=== PATIENT | female | born 1985 | race Caucasian/White ===

== ENCOUNTER 2017-03-11 15:56 | Observation (INO) ==
--- NOTE | 2017-03-11 16:05 | Emergency Department Note ---
Disposition Condition: Good Forms: Work/School Release, ED Satisfaction Letter Abdominal Pain HPI - General Chief Complaint: ED Abdominal Pain Stated Complaint: Abd Pressure / Weakness Time Seen by Provider: 03/11/17 16:01 Source: patient Mode of arrival: other (in custody) Limitations: no limitations Nursing Notes Reviewed: Yes Vital Signs Reviewed: Yes - History of Present Illness Pain Scale: 5 - Related Data Allergies Allergy/AdvReac Type Severity Reaction Status Date / Time No Known Allergies Allergy Verified 03/11/17 15:59 Abdominal Pain PMH - Past Medical History Medical history: Reports: no medical history Female Surgical History: Reports: appendectomy, cholecystectomy 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: endometriosis Psychiatric history: Reports: no psych history - Social History Smoking status: Current every day smoker Alcohol use: Reports: none Drug use: Reports: opiates, other Physical Exam - General Limitations: no limitations General appearance: alert Course Vital Signs Temperature 99.1 F 03/11/17 16:00 Pulse Rate 64 03/11/17 16:00 Respiratory Rate 14 03/11/17 16:00 Blood Pressure 139/101 03/11/17 16:00 O2 Sat by Pulse Oximetry 99 03/11/17 16:00 Temperature 99.1 F 03/11/17 16:00 Pulse Rate 64 03/11/17 16:00 Respiratory Rate 14 03/11/17 16:00 Blood Pressure 139/101 03/11/17 16:00 O2 Sat by Pulse Oximetry 99 03/11/17 16:03 Oxygen Delivery Oxygen Delivery Room Air
[2017-03-11 16:35] LABS: Bilirubin,Urine Negative (Negative); Blood,Urine Large (Negative); Clarity,Urine Cloudy (Clear); Color,Urine Yellow (Yellow); Glucose,Urine (UA) Normal (Normal); Ketones,Urine Negative (Negative); Leukocyte Esterase,Urine Moderate (Negative); Nitrite,Urine Negative (Negative); Protein,Urine 100 mg/dL (Neg-Trace); Specific Gravity,Urine 1.015 (1.010-1.025); Urobilinogen,Urine Normal (Normal)
[2017-03-11 16:36] LABS: Bacteria,Urine None Seen per hpf (None-Few); Hyaline Casts,Urine Few per lpf (None-Few); RBC,Urine TNTC per hpf (0-3); Squamous Epithelial Cell,Urine Many per lpf (None-Few); WBC,Urine TNTC per hpf (0-3)
[2017-03-11 17:40] LABS: Basophils % 0.1 %; Eosinophils # 0.2 K/mcL (0.0-0.6); Eosinophils % 1.4 %; Hematocrit 24.6 % (35.3-44.9); Immature Granulocytes % 0.9 % (0-4); Mean Corpuscular HGB Conc 30.5 g/dL (31.6-35.5); Mean Corpuscular Volume 91.8 fL (83.0-100.0); Monocytes # 0.4 K/mcL (0.0-1.3); Monocytes % 4.2 %; Neutrophils # 6.9 K/mcL (1.6-8.9); Platelet Count 551 K/mcL (140-400); Red Blood Count 2.68 M/mcL (3.82-4.97); Red Cell Distribution Width 14.8 % (11.5-14.5); Segmented Neutrophils % 65.4 %
[2017-03-11 17:52] LABS: % Iron Saturation 4 % (15-50); Iron 22 mcg/dL (50-170); Transferrin 380 mg/dL (180-382)
[2017-03-11 17:56] LABS: Alanine Aminotransferase 10 Units/L (0-55); Albumin 2.8 g/dL (3.5-5.0); Albumin/Globulin Ratio 0.6 (1.1-2.2); Alkaline Phosphatase 142 Units/L (38-126); Amylase 45 Units/L (25-125); Aspartate Amino Transferase 13 Units/L (5-34); BUN/Creatinine Ratio 13 (6-26); Bilirubin,Direct 0.1 mg/dL (0.0-0.5); Bilirubin,Indirect 0.1 mg/dL (0.0-1.2); Bilirubin,Total 0.2 mg/dL (0.2-1.2); Blood Urea Nitrogen 9 mg/dL (7-20); Calcium 9.1 mg/dL (8.6-10.8); Carbon Dioxide 26 mEq/L (19-29); Chloride 109 mEq/L (98-109); Globulin 4.6 g/dL (2.4-3.5); Glucose 87 mg/dL (70-99); Lipase 21 Units/L (8-78); Osmolality,Calculated 290 (280-300); Potassium 3.8 mEq/L (3.5-4.5); Sodium 141 mEq/L (136-145); Total Protein 7.4 g/dL (6.0-8.3); eGFR For African Americans > 60 (> 60); eGFR For Non-African Americans > 60 (> 60)
[2017-03-11 17:57] LABS: Hemoglobin 7.5 g/dL (11.5-15.4)
--- NOTE | 2017-03-11 18:22 | Emergency Department Note ---
Disposition Clinical Impression: Symptomatic anemia bleeding Qualifiers: hemorrhage type: unspecified Qualified Code(s): O72.1 - Other immediate hemorrhage Disposition: Admitted As Inpatient Condition: Good Referrals: NO,PCP [Primary Care Provider] - Forms: ED Satisfaction Letter, Work/School Release Female Urogenital HPI - General Chief complaint: ED Abdominal Pain Stated complaint: Abd Pressure / Weakness Time Seen by Provider: 03/11/17 16:01 Source: patient Limitations: no limitations Nursing Notes Reviewed: Yes Vital Signs Reviewed: Yes - History of Present Illness HPI Narrative: Patient is a 32-year-old female who is 10 days vaginal delivery at home is here for weakness and vaginal bleeding. She states she has been bleeding every day since her delivery she cannot give a good history but states she was not seen or evaluated after her vaginal delivery home. She has been incarcerated since then for prior warrant today she was seen in Court is extremely weak and requested evaluation in the emergency department. She states she has been using several tampons or pads a day since the delivery spell like a heavy period. Pt Subjective Complaint: vaginal bleeding Onset (ago): day(s) (10) Severity: none Improves with: none Worsens with: none Vaginal discharge: blood, blood clots Sexual activity: no : no - Related Data Home Medications Medication Instructions Recorded Confirmed No Known Home Drugs 03/11/17 03/11/17 Allergies Allergy/AdvReac Type Severity Reaction Status Date / Time No Known Allergies Allergy Verified 03/11/17 15:59 All systems ED: reviewed and negative except as stated. Constitutional: Reports: weakness. 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 - Social History Smoking Status: Current every day smoker Smokeless Tobacco Status: No Alcohol use: Reports: none Drug use: Reports: opiates, other Physical Exam - General Limitations: no limitations General appearance: alert - Head Head exam: atraumatic, normocephalic, normal inspection - Eye Eye exam: Present: other (Pale conjunctiva) - Expanded Eye Exam Pupils: Left: reactive - ENT ENT exam: normal exam, normal oropharynx, mucous membranes moist - Expanded ENT Exam External ear exam: Present: normal external inspection Mouth exam: Present: normal external inspection Teeth exam: Present: normal inspection Throat exam: Present: normal inspection - Neck Neck exam: Present: normal inspection, full ROM, trachea midline - Chest Chest inspection: Present: normal inspection, symmetric chest wall rise - Respiratory Respiratory exam: Present: normal lung sounds bilaterally - Cardiovascular Cardiovascular exam: Present: regular rate, normal rhythm, normal heart sounds - Abdominal Exam Abdominal exam: Present: soft, Non-Tender. 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 Absent: tenderness, pedal edema - Expanded Upper Extremity Exam Shoulder exam: Present: normal inspection, full ROM Arm exam: Present: normal inspection, full ROM Elbow exam: Present: normal inspection, full ROM Forearm/Wrist exam: Present: normal inspection, full ROM Hand exam: Present: normal inspection, full ROM Vascular exam: Normal: capillary refill, radial pulse - Expanded Lower Extremity Exam Hip/Pelvis exam: Present: normal inspection, full ROM Upper leg exam: Present: normal inspection, full ROM Knee exam: Present: normal inspection, full ROM Lower leg exam: Present: normal inspection, full ROM Ankle exam: Present: normal inspection, full ROM Foot/toe exam: Present: normal inspection, full ROM Neurovascular/Tendon exam: Absent: motor deficit, sensory deficit, tendon deficit - Back Exam Back exam: Present: normal inspection, full ROM. Absent: tenderness - Neurological Exam Neurological exam: Present: alert, oriented X3 - Expanded Neurological Exam Patient oriented to: Present: person, place, time Coma Scale Eye Opening: Spontaneous Coma Scale Motor Response: Obeys Commands Coma Scale Verbal Response: Oriented Coma Scale Total: 15 - Psychiatric Psychiatric exam: Present: normal affect, normal mood - Skin Skin exam: Present: warm, dry, intact, normal color Course Vital Signs Temperature 99.1 F 03/11/17 16:00 Pulse Rate 64 03/11/17 16:00 Respiratory Rate 14 03/11/17 16:00 Blood Pressure 139/101 03/11/17 16:00 O2 Sat by Pulse Oximetry 99 03/11/17 16:00 Temperature 99.1 F 03/11/17 16:00 Pulse Rate 57 03/11/17 19:40 Respiratory Rate 14 03/11/17 19:40 Blood Pressure 128/76 03/11/17 19:40 O2 Sat by Pulse Oximetry 100 03/11/17 19:40 Oxygen Delivery Oxygen Delivery Room Air Urogenital-Female - Differential Diagnosis Likely: sexually transmitted disease - Medical Records Medical records reviewed: Yes I reviewed the patient's medical records. - Lab Data Lab results reviewed: Yes I reviewed the patient's lab results. Result diagrams: 03/11/17 17:26 03/11/17 17:26 Lab Results 03/11/17 03/11/17 03/11/17 Range/Units 16:22 17:26 17:26 WBC 10.6 (4.3-11.1) K/mcL RBC 2.68 L (3.82-4.97) M/mcL Hgb 7.5 L (11.5-15.4) g/dL Hct 24.6 L (35.3-44.9) % MCV 91.8 (83.0-100.0) fL MCH 28.0 (28.0-33.3) pg MCHC 30.5 L (31.6-35.5) g/dL RDW 14.8 H (11.5-14.5) % Plt Count 551 H (140-400) K/mcL MPV 10.0 (9.4-12.4) fL Immature Gran % 0.9 (0-4) % Seg Neutrophils % 65.4 % Lymphocytes % 28.0 % Monocytes % 4.2 % Eosinophils % 1.4 % Basophils % 0.1 % Neutrophils # 6.9 (1.6-8.9) K/mcL Lymphocytes # 3.0 (0.6-4.6) K/mcL Monocytes # 0.4 (0.0-1.3) K/mcL Eosinophils # 0.2 (0.0-0.6) K/mcL Basophils # 0.0 (0.0-0.2) K/mcL Sodium 141 (136-145) mEq/L Potassium 3.8 (3.5-4.5) mEq/L Chloride 109 (98-109) mEq/L Carbon Dioxide 26 (19-29) mEq/L BUN 9 (7-20) mg/dL Creatinine 0.67 (0.57-1.11) mg/dL Est GFR ( Amer) > 60 (> 60) Est GFR (Non-Af Amer) > 60 (> 60) BUN/Creatinine Ratio 13 (6-26) Glucose 87 (70-99) mg/dL Calculated Osmolality 290 (280-300) Calcium 9.1 (8.6-10.8) mg/dL Iron (50-170) mcg/dL % Saturation (15-50) % Transferrin (180-382) mg/dL Total Bilirubin 0.2 (0.2-1.2) mg/dL Direct Bilirubin 0.1 (0.0-0.5) mg/dL Indirect Bilirubin 0.1 (0.0-1.2) mg/dL AST 13 (5-34) Units/L ALT 10 (0-55) Units/L Alkaline Phosphatase 142 H (38-126) Units/L Serum Total Protein 7.4 (6.0-8.3) g/dL Albumin 2.8 L (3.5-5.0) g/dL Globulin 4.6 H (2.4-3.5) g/dL Albumin/Globulin Ratio 0.6 L (1.1-2.2) Amylase 45 (25-125) Units/L Lipase 21 (8-78) Units/L Beta HCG, Quant 66 H (0-4) mIU/ml Urine Color Yellow (Yellow) Urine Clarity Cloudy A (Clear) Urine pH 7.0 (5.0-8.0) pH Units Ur Specific [place] 1.015 (1.010-1.025) Urine Protein 100 H (Neg-Trace) mg/dL Urine Glucose (UA) Normal (Normal) mg/dL Urine Ketones Negative (Negative) mg/dL Urine Blood Large H (Negative) Urine Nitrite Negative (Negative) Urine Bilirubin Negative (Negative) Urine Urobilinogen Normal (Normal) mg/dL Ur Leukocyte Esterase Moderate H (Negative) Urine Microscopic RBC TNTC H (0-3) per hpf Urine Microscopic WBC TNTC H (0-3) per hpf Ur Squamous Epith Cells Many H (None-Few) per lpf Urine Bacteria None Seen (None-Few) per hpf Hyaline Casts Few (None-Few) per lpf Ur Culture Indicated? YES A (NO) Hepatitis A IgM Ab (Nonreactive) Hep Bs Antigen (Nonreactive) Hep B Core IgM Ab (Nonreactive) Hepatitis C Ab Screen (Nonreactive) Blood Type Antibody Screen 03/11/17 03/11/17 03/11/17 Range/Units 17:26 17:26 19:11 WBC (4.3-11.1) K/mcL RBC (3.82-4.97) M/mcL Hgb (11.5-15.4) g/dL Hct (35.3-44.9) % MCV (83.0-100.0) fL MCH (28.0-33.3) pg MCHC (31.6-35.5) g/dL RDW (11.5-14.5) % Plt Count (140-400) K/mcL MPV (9.4-12.4) fL Immature Gran % (0-4) % Seg Neutrophils % % Lymphocytes % % Monocytes % % Eosinophils % % Basophils % % Neutrophils # (1.6-8.9) K/mcL Lymphocytes # (0.6-4.6) K/mcL Monocytes # (0.0-1.3) K/mcL Eosinophils # (0.0-0.6) K/mcL Basophils # (0.0-0.2) K/mcL Sodium (136-145) mEq/L Potassium (3.5-4.5) mEq/L Chloride (98-109) mEq/L Carbon Dioxide (19-29) mEq/L BUN (7-20) mg/dL Creatinine (0.57-1.11) mg/dL Est GFR ( Amer) (> 60) Est GFR (Non-Af Amer) (> 60) BUN/Creatinine Ratio (6-26) Glucose (70-99) mg/dL Calculated Osmolality (280-300) Calcium (8.6-10.8) mg/dL Iron 22 L (50-170) mcg/dL % Saturation 4 L (15-50) % Transferrin 380 (180-382) mg/dL Total Bilirubin (0.2-1.2) mg/dL Direct Bilirubin (0.0-0.5) mg/dL Indirect Bilirubin (0.0-1.2) mg/dL AST (5-34) Units/L ALT (0-55) Units/L Alkaline Phosphatase (38-126) Units/L Serum Total Protein (6.0-8.3) g/dL Albumin (3.5-5.0) g/dL Globulin (2.4-3.5) g/dL Albumin/Globulin Ratio (1.1-2.2) Amylase (25-125) Units/L Lipase (8-78) Units/L Beta HCG, Quant (0-4) mIU/ml Urine Color (Yellow) Urine Clarity (Clear) Urine pH (5.0-8.0) pH Units Ur Specific [place] (1.010-1.025) Urine Protein (Neg-Trace) mg/dL Urine Glucose (UA) (Normal) mg/dL Urine Ketones (Negative) mg/dL Urine Blood (Negative) Urine Nitrite (Negative) Urine Bilirubin (Negative) Urine Urobilinogen (Normal) mg/dL Ur Leukocyte Esterase (Negative) Urine Microscopic RBC (0-3) per hpf Urine Microscopic WBC (0-3) per hpf Ur Squamous Epith Cells (None-Few) per lpf Urine Bacteria (None-Few) per hpf Hyaline Casts (None-Few) per lpf Ur Culture Indicated? (NO) Hepatitis A IgM Ab Nonreactive (Nonreactive) Hep Bs Antigen Nonreactive (Nonreactive) Hep B Core IgM Ab Reactive H (Nonreactive) Hepatitis C Ab Screen Reactive H (Nonreactive) Blood Type O POSITIVE Antibody Screen NEGATIVE - Radiology Data Radiology results reviewed: Yes I reviewed the patient's radiology results.
[2017-03-11 18:45] LABS: Hepatitis A Antibody IgM Nonreactive (Nonreactive); Hepatitis B Surface Antigen Nonreactive (Nonreactive)
[2017-03-11 18:51] LABS: Hepatitis B Core IgM Reactive (Nonreactive)
[2017-03-11 20:16] LABS: Hepatitis C Virus Antibody Reactive (Nonreactive)
--- NOTE | 2017-03-11 20:16 | OB/GYN History & Physical ---
Date of Encounter: 03/11/17 Time of Encounter: 20:04 Assessment and Plan (1) anemia Current visit: Yes Status: Acute Pt presenting with symptomatic anemia. Hgb 7.5 which is likely actually lower in this pt that smokes 1 1/2PPD and has only had a few sips of water over the last 2 days. Will admit for IV fluids and possible blood transfusion. POC discussed with Dr. Peters History of Present Illness Chief complaint: lightheaded/dizzy HPI: Ms. Mccallum is a 32 year old female presenting 10 days s/p home with c/o dizziness, weakness, and lightheadedness. Pt reports she was seen by a customer support representative in [place] 1 or 2 times early in and she did have labs drawn here at [place]. She reports that she started leaking clear fluid 2 days before delivery and then started kandi the night before but wasn't sure she was in labor. She reports she pushed 3 times and delivered a full term baby girl. She denies calling anyone for help and states she was at a friend's house but was alone when she delivered. She does not remember if she cut the umbilical cord or not but thinks she pulled the placenta out in chunks. She does not remember much bleeding at the time of delivery but has felt weak ever since. She has not had any medical care since delivery. Yesterday she was arrested for failure to report to her PO and was taken to skilled nursing in [facility]. Her baby was taken into custody of [facility]. She states she was taken from [facility] skilled nursing to [facility] court this am. While at court her PO noticed how pale she looked and the pt states she felt like she was going to pass out so they released her to come here. She reports her bleeding is now light. No fevers, chills, odorous discharge, chest pain, SOB, headache, or vision changes. She does report occassional sharp pain in her RLQ. No urinary sx. Past Med Surg Social Fam HX - Past Medical History Medical history: no medical history Psychiatric history: no psych history - Social History Smoking Status: Current every day smoker Smokeless Tobacco Status: No Alcohol use: none Drug use: opiates, other Obstetrical History - Pregnancies : 3 Para: 3 Term: 3 : 0 Ab's: 0 Livin Medications and Allergies No Known Home Drugs 03/11/17 [History] Allergies No Known Allergies Allergy (Verified 03/11/17 15:59) Review of System OB - Constitutional Constitutional ROS IM: fatigue, weakness, no chills, no fever(s), no headache(s) - Breasts Breasts: other (engorged) - Cardiovascular Cardiovascular: edema (mild ankle edema bilaterally), lightheadedness, no chest pain, no chest pain with activity, no dyspnea, no rapid heart rate, no syncope - Genitourinary Genitourinary: no dysuria, no flank pain, no genital lesions, no vaginal odor, no vaginal pruritis Exam - Vital Signs Vital signs: Initial Vital Signs Temp Pulse Resp BP Pulse Ox 99.1 F 64 14 139/101 99 03/11/17 16:00 03/11/17 16:00 03/11/17 16:00 03/11/17 16:00 03/11/17 16:00 - Constitutional Constitutional: mild distress, other (pale) - HEENT HEENT: Pallor, Mucus Membranes Moist - Neck Neck exam: normal inspection - Lungs Respiratory exam: CTAB - Cardiovascular Cardiovascular exam: RRR, +S1, +S2 - Abdomen Abdomen: Present: bowel sounds normal (mildly TTP RLQ, fundus low, lochia light) Abdomen detail: right lower quadrant: tenderness - Extremities Extremities exam: normal inspection - Vulva Vulva: bilateral: normal - Anus/Rectum Anus/Rectum: Present: normal perianal skin Results Result Diagrams: 03/11/17 17:26 03/11/17 17:26 Abnormal lab results RBC 2.68 M/mcL (3.82-4.97) L 03/11/17 17:26 Hgb 7.5 g/dL (11.5-15.4) L 03/11/17 17:26 Hct 24.6 % (35.3-44.9) L 03/11/17 17:26 MCHC 30.5 g/dL (31.6-35.5) L 03/11/17 17:26 RDW 14.8 % (11.5-14.5) H 03/11/17 17:26 Plt Count 551 K/mcL (140-400) H 03/11/17 17:26 Iron 22 mcg/dL (50-170) L 03/11/17 17:26 % Saturation 4 % (15-50) L 03/11/17 17:26 Alkaline Phosphatase 142 Units/L (38-126) H 03/11/17 17:26 Albumin 2.8 g/dL (3.5-5.0) L 03/11/17 17:26 Globulin 4.6 g/dL (2.4-3.5) H 03/11/17 17:26 Albumin/Globulin Ratio 0.6 (1.1-2.2) L 03/11/17 17:26 Urine Clarity Cloudy (Clear) A 03/11/17 16:22 Urine Protein 100 mg/dL (Neg-Trace) H 03/11/17 16:22 Urine Blood Large (Negative) H 03/11/17 16:22 Ur Leukocyte Esterase Moderate (Negative) H 03/11/17 16:22 Urine Microscopic RBC TNTC per hpf (0-3) H 03/11/17 16:22 Urine Microscopic WBC TNTC per hpf (0-3) H 03/11/17 16:22 Ur Squamous Epith Cells Many per lpf (None-Few) H 03/11/17 16:22 Ur Culture Indicated? YES (NO) A 03/11/17 16:22 Hep B Core IgM Ab Reactive (Nonreactive) H 03/11/17 17:26 All other labs normal.
[2017-03-11] MEDS ORDERED: Ringers Solution, Lactated 1,000 ML IVC ONE (20:54)
[2017-03-11] MEDS: Ibuprofen 600 MG TABLET PO PRN (21:42)
[2017-03-12] MEDS: Acetaminophen 325 MG TABLET PO PRN ×2 (01:23→10:42)
[2017-03-12] MEDS: Nicotine 21 MG PATCH.TD24 TD SCH ×2 (01:25→08:24)
[2017-03-12] MEDS ORDERED: Ondansetron 4 MG/2 ML VIAL ONE (04:37)
[2017-03-12] MEDS: Ibuprofen 600 MG TABLET PO PRN ×2 (04:40→13:12)
[2017-03-12] MEDS: Ondansetron 4 MG/2 ML VIAL IVP PRN ×2 (04:40→10:42)
[2017-03-12] MEDS: Ringers Solution, Lactated 1,000 ML IVC SCH ×2 (05:53→05:54)
[2017-03-12 06:40] LABS: Basophils % 0.1 %
[2017-03-12 06:47] LABS: Eosinophils # 0.1 K/mcL (0.0-0.6); Eosinophils % 1.3 %; Hematocrit 19.8 % (35.3-44.9); Hemoglobin 6.2 g/dL (11.5-15.4); Immature Granulocytes % 0.6 % (0-4); Immature Platelets 2.3 % (1.1-6.1); Lymphocytes # 2.9 K/mcL (0.6-4.6); Lymphocytes % 28.8 %; Mean Corpuscular HGB Conc 31.3 g/dL (31.6-35.5); Mean Corpuscular Hemoglobin 28.4 pg (28.0-33.3); Mean Corpuscular Volume 90.8 fL (83.0-100.0); Monocytes # 0.5 K/mcL (0.0-1.3); Monocytes % 4.6 %; Neutrophils # 6.6 K/mcL (1.6-8.9); Platelet Count 678 K/mcL (140-400); Red Blood Count 2.18 M/mcL (3.82-4.97); Red Cell Distribution Width 14.7 % (11.5-14.5); Segmented Neutrophils % 64.6 %
[2017-03-12] MEDS ORDERED: Prenatal Vit/FA 1 EACH TABLET PO SCH (09:00)
[2017-03-12] MEDS ORDERED: Nicotine 21 MG PATCH.TD24 TD SCH (09:00)
[2017-03-12] MEDS ORDERED: 0.9 % Sodium Chloride 250 ML IVC SCH (09:45)
--- NOTE | 2017-03-12 09:51 | OB/GYN Progress Note ---
Date of Encounter: 03/12/17 Time of Encounter: 09:49 - Assessment and Plan (1) bleeding Current Visit: Yes Status: Acute Pt stable. Vaginal bleeding minimal used 1 pad overnight. Discussed patient with Dr. Shields. Transfuse 2 units PRBC and then will discharge to home. Qualifiers: hemorrhage type: unspecified Qualified Code(s): O72.1 - Other immediate hemorrhage Subjective - Subjective Patient reports: appetite normal, voiding normally, pain well controlled Objective - Vital Signs Latest vital signs: Vital Signs Temp Pulse Resp BP Pulse Ox 03/12/17 07:33 99 F 66 16 112/68 98 03/12/17 00:05 97.6 F 86 15 132/71 92 03/11/17 21:27 98.8 F 55 15 133/81 99 03/11/17 21:18 99 03/11/17 21:02 14 122/77 Intake and Output 03/11/17 03/12/17 03/12/17 23:59 07:59 15:59 Intake Total 1237 / 1237 Output Total 450 / 450 0 / 0 Balance -450 / -450 1237 / 1237 Intake: IV Fluids 1000 / 1000 Lactated Ringers 1,000 ML 1000 / 1000 @ 3750 mls/hr IVC .Q16M ONE Rx#:[id number] Oral 237 / 237 Output: Urine 450 / 450 0 / 0 Other: Weight 63.503 kg - I&O's I&O's: Intake & Output 03/09/17 03/10/17 03/11/17 03/12/17 23:59 23:59 23:59 23:59 Intake Total 1237 / 1237 Output Total 450 / 450 0 / 0 Balance -450 / -450 1237 / 1237 Weight 63.503 kg - Exam Lungs: bilateral: normal Chest: Normal S1, Normal S2 Extremities: Present: normal Abdomen: Present: normal appearance, soft Comments: Fundus u-4 - Labs Labs: Abnormal lab results RBC 2.18 M/mcL (3.82-4.97) L 03/12/17 06:16 Hgb 6.2 g/dL (11.5-15.4) L 03/12/17 06:16 Hct 19.8 % (35.3-44.9) L 03/12/17 06:16 MCHC 31.3 g/dL (31.6-35.5) L 03/12/17 06:16 RDW 14.7 % (11.5-14.5) H 03/12/17 06:16 Plt Count 678 K/mcL (140-400) H 03/12/17 06:16 Iron 22 mcg/dL (50-170) L 03/11/17 17:26 % Saturation 4 % (15-50) L 03/11/17 17:26 Alkaline Phosphatase 142 Units/L (38-126) H 03/11/17 17:26 Albumin 2.8 g/dL (3.5-5.0) L 03/11/17 17:26 Globulin 4.6 g/dL (2.4-3.5) H 03/11/17 17:26 Albumin/Globulin Ratio 0.6 (1.1-2.2) L 03/11/17 17:26 Beta HCG, Quant 66 mIU/ml (0-4) H 03/11/17 17:26 Urine Clarity Cloudy (Clear) A 03/11/17 16:22 Urine Protein 100 mg/dL (Neg-Trace) H 03/11/17 16:22 Urine Blood Large (Negative) H 03/11/17 16:22 Ur Leukocyte Esterase Moderate (Negative) H 03/11/17 16:22 Urine Microscopic RBC TNTC per hpf (0-3) H 03/11/17 16:22 Urine Microscopic WBC TNTC per hpf (0-3) H 03/11/17 16:22 Ur Squamous Epith Cells Many per lpf (None-Few) H 03/11/17 16:22 Ur Culture Indicated? YES (NO) A 03/11/17 16:22 Hep B Core IgM Ab Reactive (Nonreactive) H 03/11/17 17:26 Hepatitis C Ab Screen Reactive (Nonreactive) H 03/11/17 17:26 Consult Discharge Plan - Plan Referrals: NO,PCP [Primary Care Provider] -
[2017-03-12 15:07] VITALS: BP 156/91
--- NOTE | 2017-03-12 15:36 | Event Note ---
Date of Encounter: 03/12/17 Time of Encounter: 15:33 RN called and stated patient requested stopping of second unit of blood due to feeling an increased level of anxiety. Went to see patient, patient states she felt anxious and felt like her feet were going numb and tingly during transfusion. Patient states she no longer wants second blood transfusion, she feels much better after the first unit was transfused.Discussed with Dr. Shields. okay to stop transfusion. Since there were no change in vital signs, no need to draw transfusion reaction lab work
--- NOTE | 2017-03-12 15:39 | Discharge Summary ---
Date of Encounter: 03/12/17 Time of Encounter: 15:39 - Discharge Diagnosis (1) bleeding Priority: Primary Status: Acute Comments: She with stable vital signs, states only used 1 pad last night and one pad during the day today for vaginal bleeding, and those pads were not saturated when change. Patient received 1 unit of PRBCs today declining transfusion of second unit after feeling anxious after start of transfusion. Patient stable and appropriate for discharge at this time. Instructed patient to follow-up with previous OB care provider, and when to return for emergency treatment. Pt and family verbalizes understanding Qualifiers: hemorrhage type: unspecified Qualified Code(s): O72.1 - Other immediate hemorrhage - Discharge Medications Home Medications: Acetaminophen [Tylenol] 650 mg PO Q6HR PRN tab 03/12/17 [Rx] Ibuprofen [Motrin] 600 mg PO TID PRN tab 03/12/17 [Rx] Nicotine Patch [Nicoderm] 21 mg TD DAILY 03/12/17 [Rx] Vit/FA 1 each PO DAILY tab 03/12/17 [Rx] Allergies/Adverse Reactions: Allergies No Known Allergies Allergy (Verified 03/11/17 15:59) Data Procedures and tests throughout hospitalization: Laboratory Tests 03/12/17 06:16 WBC 10.2 RBC 2.18 L Hgb 6.2 L Hct 19.8 L MCV 90.8 MCH 28.4 MCHC 31.3 L RDW 14.7 H Plt Count 678 H MPV 10.0 Immature Gran % 0.6 Seg Neutrophils % 64.6 Lymphocytes % 28.8 Monocytes % 4.6 Eosinophils % 1.3 Basophils % 0.1 Neutrophils # 6.6 Lymphocytes # 2.9 Monocytes # 0.5 Eosinophils # 0.1 Basophils # 0.0 Immature Plt Fraction 2.3 Labs on day of discharge: Labs from last 24 hours 03/12/17 06:16 WBC 10.2 RBC 2.18 L Hgb 6.2 L Hct 19.8 L MCV 90.8 MCH 28.4 MCHC 31.3 L RDW 14.7 H Plt Count 678 H MPV 10.0 Immature Gran % 0.6 Seg Neutrophils % 64.6 Lymphocytes % 28.8 Monocytes % 4.6 Eosinophils % 1.3 Basophils % 0.1 Neutrophils # 6.6 Lymphocytes # 2.9 Monocytes # 0.5 Eosinophils # 0.1 Basophils # 0.0 Immature Plt Fraction 2.3 Date of admission: 03/11/17 20:55 Primary care physician: PCP NO Discharging clinician: Marcela Pennington Anticipated date of discharge: 03/12/17 - Patient Status Disposition: Home, Self-Care Condition: Good Functional capacity at discharge: independent ambulation Overall status at discharge: patient is back to baseline - Discharge Instructions Instructions: Anemia (GEN) Follow Up With: NO,PCP [Primary Care Provider] - - Diet and Activity Activity: resume usual activities as tolerated Diet: regular diet 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 Tranfusion of 1 unit PRBC, started second unit, but patient refused. Time spent discussing smoking cessation with patient: 3 to 10 minutes Time Attestation: Total time spent providing and/or coordinating discharge services: Time Spent: Less than 30 minutes Exam - Constitutional Vitals: Temp Pulse Resp BP Pulse Ox 99.9 F H 56 16 156/91 98 03/12/17 15:05 03/12/17 15:05 03/12/17 15:05 03/12/17 15:05 03/12/17 15:05 General appearance IM: A&O X 3 - Respiratory Respiratory exam: Present: CTAB - Cardiovascular Cardiovascular exam IM: Present: RRR - Uterus Position: 4 Fingers Below Umbilicus - Neurological Exam Neurological exam: normal gait, oriented X3 - Psychiatric Additional comments: Pt states anxious and wants to be discharged
== END 2017-03-12 15:59 | disposition home or self-care (01) ==
LOC: 3BNU 15:56 → EMEROO 15:56 → 3BNU 21:13
PROVIDERS: ADMIT Obstetrics & Gynecology; ATTEND Registered Nurse

== ENCOUNTER 2017-10-21 20:11 | Observation (INO) ==
[2017-10-21 22:14] LABS: Prothrombin Time 10.7 Seconds (9.4-12.1)
[2017-10-21 22:17] LABS: Activated Partial Thrombo Time 26.8 Seconds (26.0-36.0)
[2017-10-21 22:21] LABS: Basophils % 0.3 %; Eosinophils # 0.4 K/mcL (0.0-0.6); Eosinophils % 3.7 %; Hematocrit 36.7 % (35.3-44.9); Hemoglobin 12.1 g/dL (11.5-15.4); Immature Granulocytes % 0.1 % (0-4); Lymphocytes # 3.2 K/mcL (0.6-4.6); Lymphocytes % 31.3 %; Mean Corpuscular Hemoglobin 29.2 pg (28.0-33.3); Mean Corpuscular Volume 88.6 fL (83.0-100.0); Mean Platelet Volume 9.9 fL (9.4-12.4); Monocytes # 0.6 K/mcL (0.0-1.3); Monocytes % 5.8 %; Platelet Count 336 K/mcL (140-400); Red Blood Count 4.14 M/mcL (3.82-4.97); Red Cell Distribution Width 13.1 % (11.5-14.5); Segmented Neutrophils % 58.8 %
[2017-10-21 22:28] LABS: BUN/Creatinine Ratio 7 (6-26); Blood Urea Nitrogen 6 mg/dL (6-20); Calcium 9.3 mg/dL (8.6-10.3); Carbon Dioxide 20 mEq/L (23-29); Chloride 111 mEq/L (98-107); Glucose 89 mg/dL (70-105); Osmolality,Calculated 287 (280-300); Potassium 3.3 mEq/L (3.5-5.1); Sodium 140 mEq/L (136-145); eGFR For African Americans > 60 (> 60); eGFR For Non-African Americans > 60 (> 60)
--- NOTE | 2017-10-21 22:31 | Emergency Department Note ---
Disposition Clinical Impression: Chest pain Qualifiers: Chest pain type: precordial pain Qualified Code(s): R07.2 - Precordial pain Disposition: Admitted As Inpatient Condition: Fair Reasons to Return/Additional Instructions: Patient to be admitted to hospital. Referrals: NONE,PCP [Non-Partnered Physician] - Forms: ED Satisfaction Letter Time of Disposition: 00:10 Chest Pain HPI - General Chief Complaint: ED Chest Pain Stated Complaint: chest pain, charisma hx of strokes Source: patient Limitations: no limitations Vital Signs Reviewed: Yes Nursing Notes Reviewed: Yes - History of Present Illness HPI Narrative: 32-year-old female presents to emergency with a chief complaint of shortness of breath and chest pain. She states the chest pain has been present since this morning and the shortness of breath for about a month now. Shortness of breath is present with exertion and at rest intermittently. She states she is unable to walk approximately 10 feet without becoming short of breath. She does have a history of asthma for which she has tried her albuterol inhaler with minimal relief. Chest pain has been present since this morning she describes it as a substernal twinge almost like a muscle spasm. She states that there is no preceding trigger and she has no associations with exertion. She did present to the [facility] emergency room this morning and had a workup for a pulmonary embolism including elevated d-dimer, CTA of the chest which was suboptimal. He was discharged on hydroxyzine for suspected anxiety for which she does have a history of, which she states did help some. She also has a significant history of uncontrolled hypertension and stroke resulting from hypertension which she has no residual deficits from. Denies any symptoms of recent illness, fevers, chills or she does state she becomes diaphoretic and feels hot whenever these episodes come on. Pt complaint: chest pain Onset (ago): hour(s) Duration: intermittent Onset: during rest Pain Location: substernal Severity scale (1-10): 2 Quality: other (twinging) Pain Radiation: none Improves with: medication-other (Hydroxyzine) Worsens with: inspiration Associated symptoms: Reports: diaphoresis, dyspnea Treatments prior to arrival chest pain: none - Related Data Home Medications Medication Instructions Recorded Confirmed Benztropine [Cogentin] 5 mg PO HS 10/21/17 10/21/17 BuPROPion [Wellbutrin] 150 mg PO 10/21/17 Lisinopril [Zestril] 20 mg PO DAILY 10/21/17 10/21/17 Mirtazapine [Remeron] 15 mg PO HS 10/21/17 10/21/17 risperiDONE [Risperidone] 1 mg PO HS 10/21/17 10/21/17 Allergies Allergy/AdvReac Type Severity Reaction Status Date / Time No Known Allergies Allergy Verified 03/13/17 13:09 All systems ED: reviewed and negative except as stated. Review of Systems: As Per HPI Chest Pain PMH - Past Medical History Medical history: Reports: CVA, hypertension Surgical history: Reports: appendectomy, cholecystectomy, other (Laparoscopy and ablation for endometriosis.) Psychiatric history: Reports: no psych history [employer] history: Reports: endometriosis - Social History Smoking Status: Current every day smoker Alcohol use: Reports: none Drug use: Reports: opiates Physical Exam - General Limitations: no limitations General appearance: alert, in no apparent distress - Chest Chest inspection: Present: normal inspection, symmetric chest wall rise - Respiratory Respiratory exam: Present: normal lung sounds bilaterally - Cardiovascular Cardiovascular exam: Present: regular rate, normal rhythm, normal heart sounds, other (No reproducible chest pain) - Extremities Exam Extremities exam: Present: normal inspection, full ROM. Absent: tenderness, pedal edema - Neurological Exam Neurological exam: Present: alert, oriented X3 - Psychiatric Psychiatric exam: Present: normal affect, normal mood, anxious - Skin Skin exam: Present: warm, dry, intact, normal color Course Course Narrative: 32-year-old female presents with a chief complaint of chest pain, shortness of breath. She did recently resent to [facility] emergency room and was worked up for a possible pulmonary embolism and diagnosed with hydroxyzine for suspect anxiety. We will obtain her labs, chest x-ray, EKG Vital Signs Temperature 98.8 F 10/21/17 20:22 Pulse Rate 99 10/21/17 20:22 Respiratory Rate 20 10/21/17 20:22 Blood Pressure 155/88 10/21/17 20:22 O2 Sat by Pulse Oximetry 97 10/21/17 20:22 Temperature 98.8 F 10/21/17 20:22 Pulse Rate 81 10/21/17 22:03 Respiratory Rate 18 10/21/17 22:03 Blood Pressure 109/76 10/21/17 22:03 O2 Sat by Pulse Oximetry 97 10/21/17 22:03 Oxygen Delivery Oxygen Delivery Room Air Chest Pain - MDM Narrative Medical decision making narrative: 32-year-old female presents emergency room with chest pain, shortness of breath. Vital signs have been unremarkable. Labs unremarkable. EKG did show ST depressions in the anterior leads. EKG was repeated and continues to show ST depression. Heart score 5: slightly suspicious, smoking hx, htn, previous cva. Combined with history of uncontrolled hypertension, stroke, dyspnea, chest pain, diaphoresis, we feel that she would benefit from an admission. This was discussed with the hospitalist, who accepts for admission. - Lab Data Result diagrams: 10/21/17 22:00 10/21/17 22:00 Lab Results 10/21/17 10/21/17 10/21/17 Range/Units 22:00 22:00 22:00 WBC 10.2 (4.3-11.1) K/mcL RBC 4.14 (3.82-4.97) M/mcL Hgb 12.1 (11.5-15.4) g/dL Hct 36.7 (35.3-44.9) % MCV 88.6 (83.0-100.0) fL MCH 29.2 (28.0-33.3) pg MCHC 33.0 (31.6-35.5) g/dL RDW 13.1 (11.5-14.5) % Plt Count 336 (140-400) K/mcL MPV 9.9 (9.4-12.4) fL Immature Gran % 0.1 (0-4) % Seg Neutrophils % 58.8 % Lymphocytes % 31.3 % Monocytes % 5.8 % Eosinophils % 3.7 % Basophils % 0.3 % Neutrophils # 6.0 (1.6-8.9) K/mcL Lymphocytes # 3.2 (0.6-4.6) K/mcL Monocytes # 0.6 (0.0-1.3) K/mcL Eosinophils # 0.4 (0.0-0.6) K/mcL Basophils # 0.0 (0.0-0.2) K/mcL PT 10.7 (9.4-12.1) Seconds INR 1.0 APTT 26.8 (26.0-36.0) Seconds Sodium (136-145) mEq/L Potassium (3.5-5.1) mEq/L Chloride (98-107) mEq/L Carbon Dioxide (23-29) mEq/L BUN (6-20) mg/dL Creatinine (0.60-1.20) mg/dL Est GFR ( Amer) (> 60) Est GFR (Non-Af Amer) (> 60) BUN/Creatinine Ratio (6-26) Glucose (70-105) mg/dL Calculated Osmolality (280-300) Calcium (8.6-10.3) mg/dL Troponin I (< 0.04) ng/mL B-Natriuretic Peptide 18 (Less than 100) pg/mL 10/21/17 10/21/17 Range/Units 22:00 22:00 WBC (4.3-11.1) K/mcL RBC (3.82-4.97) M/mcL Hgb (11.5-15.4) g/dL Hct (35.3-44.9) % MCV (83.0-100.0) fL MCH (28.0-33.3) pg MCHC (31.6-35.5) g/dL RDW (11.5-14.5) % Plt Count (140-400) K/mcL MPV (9.4-12.4) fL Immature Gran % (0-4) % Seg Neutrophils % % Lymphocytes % % Monocytes % % Eosinophils % % Basophils % % Neutrophils # (1.6-8.9) K/mcL Lymphocytes # (0.6-4.6) K/mcL Monocytes # (0.0-1.3) K/mcL Eosinophils # (0.0-0.6) K/mcL Basophils # (0.0-0.2) K/mcL PT (9.4-12.1) Seconds INR APTT (26.0-36.0) Seconds Sodium 140 (136-145) mEq/L Potassium 3.3 L (3.5-5.1) mEq/L Chloride 111 H (98-107) mEq/L Carbon Dioxide 20 L (23-29) mEq/L BUN 6 (6-20) mg/dL Creatinine 0.86 (0.60-1.20) mg/dL Est GFR ( Amer) > 60 (> 60) Est GFR (Non-Af Amer) > 60 (> 60) BUN/Creatinine Ratio 7 (6-26) Glucose 89 (70-105) mg/dL Calculated Osmolality 287 (280-300) Calcium 9.3 (8.6-10.3) mg/dL Troponin I < 0.03 (< 0.04) ng/mL B-Natriuretic Peptide (Less than 100) pg/mL - EKG Data EKG shows normal: sinus rhythm Rate: normal Rhythm: NSR Eunice/QRS: normal ST segment depression in: v1, v2 When compared to previous EKG there are: changes noted Interpretation: nonspecific ST-T wave changes Heart Score - Score History: Slightly Suspicious EKG: Significant ST-Depression Age: Less than 45 Risk Factors: Equal/Greater than 3 risk factor or history of atherosclerotic disease Troponin: Less than normal limit HEART Score Total: 4
--- NOTE | 2017-10-21 23:55 | Emergency Department Note ---
START Narrative - START START: I examined this patient and my medical decision-making was reviewed with the Resident Physician. I agree with the documented findings, disposition and treatment plan as described except to the extent set forth below. 32-year-old female presents to the ER for chest pain. Workup here is unremarkable. However, treat her EKG did show that she had some T-wave inversions in V1 through V2 these were new. Patient needs to be admitted for these EKG abnormalities in the setting of chest pain. She states she had a CTA of the chest done at [facility] today that was negative for pulmonary embolus.
--- NOTE | 2017-10-22 01:32 | Internal Med History&Physical ---
<JacquessanyaflyjanieCelso - Last Filed: 10/22/17 03:46> Date of Encounter: 10/22/17 Time of Encounter: 01:28 Assessment and Plan (1) Chest pain Current visit: Yes Status: Acute Patient reports intermittent chest twinges/tightness without radiation accompanied by SOB, warmth, and panic. Likely 2/2 panic attack. Patient has significant psych hx. Troponin's negative x 2 (ionia and here) CTA chest negative for PE VS stable ST segment depression in V1 V2 Hx of HTN, CVA, current smoker, with risk factors and EKG changes will need cardiac work up. TTE for the morning Will trend troponin. With hx of drug abuse awaiting urine drug screen to rule out cocaine induced vasospasm Once drug screen comes back will order Stress Test. Patient's CTA was negative at [facility] but because it was a suboptimal study will check Venous dopplers of legs to rule out PE. Qualifiers: Chest pain type: unspecified Qualified Code(s): R07.9 - Chest pain, unspecified (2) HTN (hypertension) Current visit: Yes Status: Acute Pt with hx of HTN on home lisinopril Plan: Restart home lisinopril Qualifiers: Hypertension type: essential hypertension Qualified Code(s): I10 - Essential (primary) hypertension (3) Psychiatric diagnosis Current visit: Yes Status: Acute Patient on home Cogentin, Wellbutrin, Remeron, and risperdal continue home psych meds. Internal Medicine - H&P: HPI Chief complaint: Chest pain, SOB Admitted From: Emergency Dept Plans for Post Hospital Care: Home History of present illness: Ms. Mccallum is a 32 year old female c PMhx of HTN, CVA s residual defecits, opioid abuse on vivitrol, and asthma, reports to the [facility] c/o intermittent chest pain and SOB x 1 day. Patient describes the pain as central and feeling like a muscle twinge, she reports accompanying SOB, warmth, and feeling of panic. She denies radiations, abd pn, N, V, D. Patient went to [facility] ED this afternoon for these same sxs. At that time there were no abnormalities in her EKG, her vitals were normal, her troponin was negative. Patient's D-Dimer was milder elevated 558 and a CTA chest was performed. It was negative for PE, but was technically substandard and only able to evaluate the main pulmonary arteries. She was given 1 time dose of hydroxyzine for anxiety which improved her symptoms. Patient was discharged home. Patient came to [facility] ED several hours later because sxs continued to occur. CXR was performed which was normal. Repeat trop still negative. Repeat EKG showed ST segment depression in V1 and V2 , not on prior EKG from February of 2017, we do not have a copy of the EKG from [facility] but their documentation from the ED suggests this depression is new since this afternoon. At thsi time patient has no chest pain or SOB. She reprots feelign fien when I just sit here and don't get worked up. Past Med Surg Social Fam HX - Past Medical History Medical history: CVA, hypertension Psychiatric history: anxiety, depression, PTSD - Past Surgical History Surgical History: appendectomy, cholecystectomy, other - Social History Smoking Status: Current every day smoker Packs per day: 0.5 Smokeless Tobacco Status: No Alcohol use: none Drug use: opiates Internal Medicine - H&P: Meds Benztropine [Cogentin] 0.5 mg PO HS 10/21/17 [History] BuPROPion [Wellbutrin] 150 mg PO 10/21/17 [History] Lisinopril [Zestril] 20 mg PO DAILY 10/21/17 [History] Mirtazapine [Remeron] 15 mg PO HS 10/21/17 [History] risperiDONE [Risperidone] 1 mg PO HS 10/21/17 [History] 3 Allergy/AdvReac Type Severity Reaction Status Date / Time No Known Allergies Allergy Verified 03/13/17 13:09 All Systems PM: A 10-system review of systems was performed and is negative for pertinent findings except as documented above in the HPI. - Constitutional Constitutional: no chills, no fever(s) - EENT Eyes: no change in vision, no pain Ears: no ear pain Nose, mouth and throat: no hoarseness, no nasal discharge - Cardiovascular Cardiovascular ROS IM: chest pain, dyspnea - Respiratory Respiratory: dyspnea on exertion, no cough - Gastrointestinal Gastrointestinal: no abdominal pain, no diarrhea, no vomiting - Musculoskeletal Musculoskeletal ROS IM: no muscle weakness, no numbness - Integumentary Integumentary IM: no rash, no jaundice - Neurological Neurological ROS: no confusion, no numbness, no tingling - Psychiatric Psychiatric: anxiety, no confusion - Constitutional Vitals: Temp Pulse Resp BP Pulse Ox 97.8 F 74 15 100/60 97 10/22/17 00:55 10/22/17 00:55 10/22/17 00:55 10/22/17 00:55 10/22/17 00:55 General appearance: Present: A&O X 3, no acute distress, answers questions appropriately - Head Head exam: Present: atraumatic, normocephalic - Eye Eye exam: Present: EOMI, PERRL, conjuntiva pink, sclera anicteric Pupils: Present: PERRL - Neck Neck exam general surgery: Present: supple, trachea midline - Respiratory Respiratory exam: Present: CTAB. Absent: accessory muscle use, rales, rhonchi, wheezes - Cardiovascular Cardiovascular exam: Present: RRR, +S1, +S2. Absent: diastolic murmur, gallop, rubs, systolic murmur Additional comments: no chest wall tenderness - GI/Abdominal GI/Abdominal exam: Present: normal bowel sounds, soft, no peritoneal signs. Absent: distended, tenderness - Extremities Exam Extremities exam: Present: warm, radial pulses palpable and symmetrical. Absent : calf tenderness, cyanotic, pedal edema - Neurological Exam Neurological exam: Present: alert, CN II-XII intact, oriented X3, no focal deficits. Absent: facial droop, speech deficit - Psychiatric Psychiatric exam: Present: anxious - Skin Skin exam: Present: dry, intact Internal Med - H&P Results - Labs CBC & Chem 7: 10/21/17 22:00 10/21/17 22:00 <Chele Lawson - Last Filed: 10/22/17 06:10> Date of Encounter: 10/22/17 Time of Encounter: 04:05 Past Med Surg Social Fam HX - Family History Mother Living Status: Still Living Hx Family Cardiac Disorders: No Father Living Status: Still Living Hx Family Cardiac Disorders: No - Constitutional Vitals: Temp Pulse Resp BP Pulse Ox 97.6 F 107 15 102/75 99 10/22/17 03:39 10/22/17 03:39 10/22/17 03:39 10/22/17 03:39 10/22/17 03:39 General appearance: Present: A&O X 3, no acute distress - Head Head exam: Present: normal inspection - Eye Eye exam: Present: PERRL. Absent: scleral icterus - ENT ENT exam: Present: mucous membranes dry, normal exam, normal oropharynx - Neck Neck exam general surgery: Present: supple - Respiratory Respiratory exam: Present: CTAB. Absent: chest wall tenderness, rales, rhonchi , wheezes - Cardiovascular Cardiovascular exam: Present: RRR, +S1, +S2. Absent: diastolic murmur, systolic murmur - GI/Abdominal GI/Abdominal exam: Present: soft. Absent: tenderness - Extremities Exam Extremities exam: Present: warm, radial pulses palpable and symmetrical. Absent : pedal edema, tenderness - Back Exam Back exam: Absent: CVA tenderness (L), CVA tenderness (R) - Neurological Exam Neurological exam: Present: alert, CN II-XII intact, oriented X3, no focal deficits - Psychiatric Psychiatric exam: Present: normal affect, normal mood Internal Med - H&P Results - Labs CBC & Chem 7: 10/21/17 22:00 10/21/17 22:00 Labs: Cardiac Enzymes 10/22/17 Range/Units 04:33 Troponin I < 0.03 (< 0.04) ng/mL - EKG Data -: EKG Interpreted by Myself - EKG Data Prior EKG available for review: yes EKG comments: 10/22/17 06:03 NSR; subtle ST-T depression anteriorly -- different from prior EKG - Diagnostic Studies Chest x-ray Status: image reviewed by me (negative) - Attending Attestation I discussed the patient ASA'CARSARMIUT, PMH, ROS, lab data, and exam findings with Dr. Walker. I then saw and examined patient independently as well. Patient presently without chest pain and has no neurologic deficits to my exam. Given her history of drug abuse in the past, I requested ER and 3B nursing staff to obtain a urine drug screen before we order any cardiac stress testing. Urine sample still yet to be collected. Although she reports sobriety and abstinence from drugs of abuse, I still would like confirmation before proceeding with cardiac work-up. She has no FH CAD, but she now presents with chest pain and has history of CVA. I suspect these are due to her history of drug use and I worry about cocaine use. We will await urine drug screen before proceeding with stress testing. We will avoid beta blockers for now as well. I agree with LE Dopplers to rule out DVT. Patient had serum test at [facility] which was negative. Other than my comments above and noted exam findings, I agree with Dr. Walker' s assessment and plan.
[2017-10-22] MEDS ORDERED: Mirtazapine 15 MG TABLET PO SCH (02:15)
[2017-10-22] MEDS ORDERED: risperiDONE 1 MG TABLET PO SCH (02:15)
[2017-10-22] MEDS ORDERED: *HR* Heparin 5,000 UNIT/ML VIAL SQ SCH (06:15)
[2017-10-22 07:02] LABS: Amphetamine Screen,Urine Negative ng/mL (Cutoff=1000); Barbiturate Screen,Urine Negative ng/mL (Cutoff=200); Benzodiazepines Screen,Urine Negative ng/mL (Cutoff=200); Cannabinoid Screen,Urine Negative ng/mL (Cutoff = 50); Cocaine Screen,Urine Negative ng/mL (Cutoff= 300); Opiate Screen,Urine Negative ng/mL (Cutoff=300); Phencyclidine Screen,Urine Negative ng/mL (Cutoff=25)
[2017-10-22] MEDS ORDERED: BuPROPion XL (24 HR) 150 MG TABLET PO SCH (09:00)
[2017-10-22] MEDS ORDERED: Aspirin 81 MG TAB.CHEW PO SCH (09:00)
[2017-10-22] MEDS ORDERED: Lisinopril 20 MG TABLET PO SCH (09:00)
--- NOTE | 2017-10-22 10:52 | Event Note ---
Date of Encounter: 10/22/17 Time of Encounter: 10:47 (1) Chest pain with intermittent chest twinges/tightness without radiation accompanied by SOB, warmth, and panic. Possibly secondary to panic attack as patient has significant psych hx. serial troponins negative.. CTA chest negative for PE. EKG with ST segment depression in V1 V2. Patient's CTA was negative at [place] but because it was a suboptimal study will check Venous dopplers of legs to rule out PE. Stress test and echo pending. (2) HTN (hypertension) hx of HTN. BP controlled. Cont home lisinopril (3) Psychiatric diagnosis cont home Cogentin, Wellbutrin, Remeron, and risperdal
[2017-10-22 12:57] VITALS: BP 113/73
--- NOTE | 2017-10-22 14:16 | Discharge Summary ---
Orders not resulted at time of discharge: Pending orders 10/22/17 08:04 NM ricardo perf SPECT multi [NM] Routine Date of Encounter: 10/22/17 Time of Encounter: 14:05 - Discharge Diagnosis (1) Atypical chest pain Priority: Primary Status: Resolved Comments: with intermittent chest twinges/tightness without radiation accompanied by SOB, warmth, and panic. Serial troponins negative. CTA chest negative for PE. EKG with ST segment depression in V1 V2. TTE with EF 60%, normal systolic and diastolic function, no wall motion abnormalities. Nuclear stress test negative for ischemia or infarct. No chest pain at time of discharge. Chest pain possibly secondary to anxiety as she has significant psychiatric history. Advised to follow-up with PCP. (2) Depression Priority: Primary Status: Acute Comments: With anxiety. Suspect anxiety possibly contributing to chest pain. Continue home psychiatric medication regimen. Recommend follow-up with PCP within 1-2 weeks Qualifiers: Depression Type: major depressive disorder Major depression recurrence: recurrent Active/Remission status: currently active Major depression episode severity: mild Qualified Code(s): F33.0 - Major depressive disorder, recurrent, mild (3) HTN (hypertension) Priority: Primary Status: Acute Comments: per hx. BP controlled. Continue home BP medication. Qualifiers: Hypertension type: essential hypertension Qualified Code(s): I10 - Essential (primary) hypertension Hospital course: Ms. Mccallum is a 32 year old female hypertension, depression and anxiety who presented to [facility] on 10/22/2017 with complaints of chest pain. ACS was ruled out with negative stress test and echocardiogram. Suspect chest pain possibly secondary to anxiety. She was discharged home in stable condition with outpatient follow-up. See assessment and plan for further details. Discharge discussed with: patient - Time Spent with Patient Total time spent providing and/or coordinating discharge services: Less than 30 minutes - Discharge Medications Home Medications: Benztropine [Cogentin] 0.5 mg PO HS 10/21/17 [History] BuPROPion [Wellbutrin] 150 mg PO DAILY 10/21/17 [History] Lisinopril [Zestril] 20 mg PO DAILY 10/21/17 [History] Mirtazapine [Remeron] 15 mg PO HS 10/21/17 [History] risperiDONE [Risperidone] 1 mg PO HS 10/21/17 [History] Acyclovir [Zovirax] 800 mg PO BID 10/22/17 [History] Albuterol Sulfate [Ventolin Hfa] 1 puff IH AD 10/22/17 [History] Citalopram [CeleXA] 20 mg PO DAILY 10/22/17 [History] Ferrous Sulfate [Iron] 325 mg PO TID 10/22/17 [History] Linaclotide [Linzess] 145 mcg PO DAILY 10/22/17 [History] Naltrexone Microspheres [Vivitrol] 380 mg SQ QMONTH 10/22/17 [History] Pantoprazole Sodium 40 mg PO DAILY 10/22/17 [History] Sucralfate [Carafate] 1 gm PO QIDAC 10/22/17 [History] Trazodone HCl 100 mg PO HS 10/22/17 [History] hydrOXYzine HCl [Hydroxyzine HCl] 50 mg PO BID 10/22/17 [History] Allergies/Adverse Reactions: 3 Allergy/AdvReac Type Severity Reaction Status Date / Time No Known Allergies Allergy Verified 03/13/17 13:09 Date of admission: 10/22/17 00:28 Primary care physician: Daxa Ram Discharging clinician: Salina Marcos Anticipated date of discharge: 10/22/17 - Constitutional Vitals: Temp Pulse Resp BP Pulse Ox 98.3 F 76 16 113/73 97 10/22/17 06:54 10/22/17 06:54 10/22/17 06:54 10/22/17 12:57 10/22/17 06:54 General appearance: Present: A&O X 3, no acute distress - Head Head exam: Present: atraumatic, normocephalic - Eye Eye exam: Present: PERRL, conjuntiva pink, sclera anicteric Pupils: Present: PERRL - Neck Neck exam general surgery: Present: supple, trachea midline. Absent: lymphadenopathy - Respiratory Respiratory exam: Present: CTAB. Absent: accessory muscle use, rales, rhonchi, wheezes - Cardiovascular Cardiovascular exam: Present: RRR, +S1, +S2. Absent: diastolic murmur, gallop, rubs, systolic murmur - GI/Abdominal GI/Abdominal exam: Present: normal bowel sounds, soft, no peritoneal signs. Absent: distended, tenderness - Extremities Exam Extremities exam: Present: warm, radial pulses palpable and symmetrical. Absent : calf tenderness, cyanotic, pedal edema - Neurological Exam Neurological exam: Present: CN II-XII intact, oriented X3, no focal deficits. Absent: pronater drift, facial droop, speech deficit - Skin Skin exam: Present: dry, intact - Patient Status Disposition: Home, Self-Care Condition: Fair - Discharge Instructions Instructions: Chest Pain (DC), Anxiety (DC) Follow Up With: Daxa Ram CNP [Primary Care Provider] - (Please call for follow-up appointment within 1-2 weeks) - Diet and Activity Activity: increase activity as tolerated Diet: advance to your usual diet
--- NOTE | 2017-10-22 15:15 | Electrocardiograph Report ---
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
--- NOTE | 2017-10-22 15:15 | Electrocardiograph Report ---
[address] [place], [place] [address] Test Date: 2017-10-21 Pat Name: Annabel Mccallum Department: 102 Room: 3B43 Gender: F Tight Cooper: : 1985 Requested By: Salina Marcos Order Number: [id number] Reading MD: Chelly Berkowitz Measurements Intervals [place] Rate: 77 P: 52 HI: 142 QRS: 27 QRSD: 98 T: -7 QT: 405 QTc: 436 Interpretive Statements SINUS RHYTHM NONSPECIFIC ST & T-WAVE ABNORMALITY Electronically Signed On 10-22-2017 15:13:52 EST by Chelly Berkowitz
== END 2017-10-22 15:09 | disposition home or self-care (01) ==
LOC: EMEROO 20:11 → 3BNU 20:11
PROVIDERS: ADMIT Pediatrics; ATTEND Registered Nurse